=== PATIENT | female | born 1980 ===

== ENCOUNTER 2016-10-31 04:26 | Inpatient (IN) | payer BC, OTHER ==
[2016-10-31] MEDS ORDERED: OBEPIDURAL* 250 ML ONE (04:54)
[2016-10-31] MEDS ORDERED: Phenylephrine IV* 40 MCG/ML 10 ML SYRINGE IV PUSH PRN ×2 (05:24)
[2016-10-31] MEDS ORDERED: Famotidine TAB* 20 MG PO PRN (05:24)
[2016-10-31] MEDS ORDERED: Sodium Citrate/Citric Acid* 15 ML UDC PO PRN (05:24)
[2016-10-31 05:25] LABS: Hematocrit 32 % (35-47); Hemoglobin 10.9 g/dl (12.0-16.0); Mean Corpuscular HGB Conc 34 g/dl (31-36); Mean Corpuscular Hemoglobin 28 pg (27-31); Mean Corpuscular Volume 83 fL (80-97); Mean Platelet Volume 10 um3 (7.4-10.4); Red Blood Count 3.93 10^6/ul (4.0-5.4); Red Cell Distribution Width 13 % (10.5-15); White Blood Count 9.4 10^3/ul (3.5-10.8)
[2016-10-31] MEDS ORDERED: OBEPIDURAL* 250 ML EPIDURAL SCH (06:00)
[2016-10-31] MEDS ORDERED: Oxytocin in LR* 20 UNITS/1,000 ML BAG IVPB ONE (07:50)
[2016-10-31] MEDS ORDERED: Witch Hazel PAD* JAR TOPICAL PRN (08:38)
[2016-10-31] MEDS ORDERED: Dibucaine 1% 28.35 GM TUBE PR PRN (08:38)
[2016-10-31] MEDS ORDERED: oxyCODONE/Acetamin 5/325 MG* TAB PO PRN (08:38)
[2016-10-31] MEDS ORDERED: Glycerin ADULT SUPP PR PRN (08:38)
[2016-10-31] MEDS ORDERED: Oxytocin in LR* 20 UNITS/1,000 ML BAG IVPB SCH (09:00)
[2016-10-31] MEDS: Docusate CAP* 100 MG PO SCH ×3 (12:49→20:37)
[2016-10-31] MEDS: Ibuprofen TAB* 600 MG PO PRN ×2 (14:31→20:37)
[2016-10-31] MEDS: Acetaminophen TAB* 325 MG PO PRN (17:24)
[2016-11-01] MEDS: Acetaminophen TAB* 325 MG PO PRN ×4 (01:13→21:22)
[2016-11-01] MEDS: Ibuprofen TAB* 600 MG PO PRN ×3 (02:47→17:56)
[2016-11-01 06:37] LABS: Hematocrit 28 % (35-47); Hemoglobin 8.9 g/dl (12.0-16.0); Mean Corpuscular HGB Conc 32 g/dl (31-36); Mean Corpuscular Hemoglobin 27 pg (27-31); Mean Corpuscular Volume 84 fL (80-97); Mean Platelet Volume 10 um3 (7.4-10.4); Red Blood Count 3.28 10^6/ul (4.0-5.4); Red Cell Distribution Width 14 % (10.5-15); White Blood Count 12.3 10^3/ul (3.5-10.8)
[2016-11-01] MEDS ORDERED: Tetan/Diph/Pertus SYR(Tdap)* 0.5 ML SYR(BOOSTRIX) use SYR IM ONE (09:00)
[2016-11-01] MEDS: Docusate CAP* 100 MG PO SCH ×3 (09:30→21:22)
[2016-11-01] MEDS: Ferrous Gluconate TAB* 324 MG TAB PO SCH ×2 (09:31→21:22)
[2016-11-02] MEDS: Ibuprofen TAB* 600 MG PO PRN ×2 (02:07→09:07)
[2016-11-02 08:06] VITALS: BP 107/63
[2016-11-02] MEDS: Docusate CAP* 100 MG PO SCH (09:07)
[2016-11-02] MEDS: Ferrous Gluconate TAB* 324 MG TAB PO SCH (09:07)
== END 2016-11-02 10:36 | disposition home or self-care (01) | DRG 775 ==
LOC: MCHOBOUT 04:26 → MCHOB 04:45
PROVIDERS: ADMIT Midwife; ATTEND Midwife
PROC: 10E0XZZ Delivery of Products of Conception, External Approach (ICD-10-PCS; principal; 2016-10-31)
PROC: 0DQR0ZZ Repair Anal Sphincter, Open Approach (ICD-10-PCS; 2016-10-31)
PROC: 4A1HXCZ Monitoring of Products of Conception, Cardiac Rate, External Approach (ICD-10-PCS; 2016-10-31)
DX: O69.81X0 Labor and delivery complicated by cord around neck, without compression, not applicable or unspecified (principal); O70.20 Third degree perineal laceration during delivery, unspecified; O90.81 Anemia of the puerperium; O77.0 Labor and delivery complicated by meconium in amniotic fluid; O09.523 Supervision of elderly multigravida, third trimester; Z3A.39 39 weeks gestation of pregnancy; Z37.0 Single live birth
CPT/HCPCS: 36415; 85025; 85027; 86850; 86900; 86901; 90715; A9270-GY